=== PATIENT | male | born 1990 | race Caucasian/White ===

== ENCOUNTER 2020-03-01 19:30 | Emergency (ER) | payer OTHER, BC, SELFPAY ==
--- NOTE | ~2020-03-01 | XR_ITS ---
EXAMINATION: XR forearm LT 2V INDICATION: Left forearm pain TECHNIQUE: Two views of the left forearm are obtained. COMPARISON: None available FINDINGS: There is no fracture, dislocation, or subluxation. Soft tissue swelling is seen at the medi al aspect of the mid forearm. Alignment at the wrist and elbow is normal. IMPRESSION: 1. Soft tissue swelling without acute osseous abnormality. Reviewed, dictated and finalized at location A.
[2020-03-01 20:04] VITALS: BP 151/75; PULSE 104; RESP 18; TEMP 36.2; O2SAT 97
--- NOTE | 2020-03-01 20:29 | ED.GENADULT ---
HPI - General Adult General Chief complaint: Extremity Injury, Upper Stated complaint: L arm injury Time Seen by Provider: 03/01/20 20:29 Source: patient Mode of arrival: ambulatory Limitations: no limitations History of Present Illness HPI narrative: 29-year-old male patient presents to the [facility] with complaints left forearm and wrist pain. Patient states that he was at work and was working with a wrench and it flung back hitting him in the left wrist. Patient states it feels very tight and states he has a lot of pain to the left wrist and forearm area. Denies any pain to the elbow. Patient states he has limited movement to the fingers. Denies taking anything for pain and denies icing it yet at this time. Related Data Allergies Allergy/AdvReac Type Severity Reaction Status Date / Time No Known Allergies Allergy Verified 03/01/20 20:07 Review of Systems Review of Systems: Narrative: CONSTITUTIONAL: Denies fever, chills, or sweats. EYES: Denies visual changes, redness, or discharge. ENT: Denies rhinorrhea, congestion, sore throat, or otalgia. CARDIOVASCULAR: Denies chest pain, palpitations, or edema. RESPIRATORY: Denies cough or dyspnea. GASTROINTESTINAL: Denies abdominal pain, nausea, vomiting, or diarrhea. GENITOURINARY: Denies dysuria or hematuria. SKIN: Denies rash or itching. MUSCULOSKELETAL: Denies back pain, joint pain, or myalgia. Positive left wrist and forearm pain NEUROLOGIC: Denies headache, numbness, or weakness. PSYCHIATRIC: Denies anxiety or depression. PMFSH Social History Social History Gender identity (if verbalized by the patient): Male Comments At the time of my signature I agree with nursing past medical history, surgical, social, and family history. There is no relevant family history pertinent to the presenting complaint. Exam Narrative: Exam Narrative: GENERAL: Well-appearing, well-nourished, and in no acute distress. HEAD: Normocephalic, atraumatic. EYES: PERRLA and EOMI. ENT: Nares clear, no rhinorrhea or epistaxis. Mucous membranes moist. NECK: Supple. No lymphadenopathy CHEST: Clear to auscultation. No respiratory distress. HEART: Regular rate and rhythm. No murmur heard. Normal peripheral pulses. ABDOMEN: Soft, nontender, nondistended, normal active bowel sounds. EXTREMITIES: The L wrist is without obvious asymmetry or deformity when compared to the R wrist. No surface trauma, patient has a small 1 cm laceration/puncture wound to the plantar side of the left forearm no active bleeding to the area, or obvious deformity. Swelling noted to the left wrist and forearm area. Swelling noted to the left hand. No overlying erythema or warmth. No bony crepitus or focal area of TTP. No scaphoid fullness or tenderness to direct palpation or axial load. Decreased with active flex/extension and pain with passive flexion and extension of the left wrist, pain with ulnar/radial deviation. Motor/sensory function of ulnar, radial, median nerves intact. Ulnar and radial pulses intact. SKIN: Warm, dry, no rash. NEURO: No focal deficits. Alert and oriented x3. Course Reevaluation(s) Reevaluation #1: Spoke with patient after x-ray had resulted. Discussed with him that there is no fracture noted to the forearm or wrist. Discussed with him though I am concerned about that little puncture wound/laceration to the forearm because it was a thao wench. Discussed with patient that we will update his tetanus shot and discharge him home on antibiotics. Discussed with him we will give him his first dose of antibiotics before he leaves because the pharmacies are most likely closed. Discussed with patient that if he needs time off her restrictions he will see his primary doctor but I will get him home tomorrow off of work. Patient verbalized understanding of this. Discussed with patient can take Tylenol and ibuprofen very important to clean the area with soap and water
--- NOTE | 2020-03-01 20:59 | PC.NURSE ---
CT waiting on Pt for about 5min outside room, pt never showed. Its been about another 15 minutes and Pt still not back to room. Female friend in room waiting for Pt, states she will call him.
[2020-03-01] MEDS: KETOROLAC (*BKC) 60 MG/2 ML VIAL IM (21:34)
[2020-03-01] MEDS: TETANUS,DIPHTHERIA,AC PERTUSSIS ADULT (0.5 ML) BOOSTRIX IM (22:24)
[2020-03-01] MEDS: CEPHALEXIN 500 MG CAPSULE PO (22:24)
[2020-03-01 22:55] VITALS: BP 162/80; PULSE 100; RESP 20; O2SAT 100
== END 2020-03-01 22:34 | disposition home or self-care (01) ==
PROVIDERS: Emergency Provider Nurse Practitioner Family
DX: S63.502A Unspecified sprain of left wrist, initial encounter (principal); S51.812A Laceration without foreign body of left forearm, initial encounter; W27.0XXA Contact with workbench tool, initial encounter; Z23 Encounter for immunization
CPT/HCPCS: 73090; 90471; 90715; 96372; 99283; A4565; A9270; J1885

== ENCOUNTER 2021-11-28 16:28 | Emergency (ER) | payer OTHER, SELFPAY ==
--- NOTE | ~2021-11-28 | XR_ITS ---
EXAMINATION: XR ankle RT min 3V EXAM DATE: 11/28/2021 17:37 INDICATION: Pain @ lateral side of RT ankle after injury x 2 days ago. TECHNIQUE: Right ankle frontal, lateral and oblique projections obtained and reviewed. There is no p rior study for comparison. FINDINGS: The right ankle mortise appears intact. Ossification dorsal to the talonavicular joint a ppears well-corticated, chronic. There are no acute fractures or dislocations identified. There is n o subcutaneous gas. The soft tissue is unremarkable. There are no radiopaque foreign bodies. IMPRESSION: No acute osseous findings. Reviewed, dictated and finalized at location G. IMPRESSION: No acute osseous findings.
[2021-11-28 16:45] VITALS: BP 167/90; PULSE 93; RESP 18; TEMP 36.6; O2SAT 97
--- NOTE | 2021-11-28 16:55 | ED.LOWEXIN ---
HPI - Extremity Injury (Lower) General Chief Complaint: Extremity Injury, Lower Stated Complaint: RT ankle pain Time Seen by Provider: 11/28/21 16:55 Source: patient History of Present Illness HPI Narrative: 31-year-old male twisted his right ankle at work yesterday. He presents with -- pain over his lateral malleolus and in front of the ankle. Decreased range of motion MD complaint: ankle injury Injury: Right: ankle Type of Injury: inversion Place: work Severity: moderate Relieving factors: nothing Exacerbating factors: weight bearing Associated symptoms: able to partially bear weight Other symptoms: none Related Data Home Medications Medication Instructions Recorded Confirmed No Home Medications 11/28/21 11/28/21 Allergies Allergy/AdvReac Type Severity Reaction Status Date / Time No Known Allergies Allergy Verified 11/28/21 16:54 Review of Systems Review of Systems: All systems reviewed & are unremarkable except as noted in HPI and below Constitutional: Constitutional: Reports as per HPI and Reports no additional constitutional complaints Eyes: Eyes: Reports as per HPI and Reports no additional eye complaints ENT: Reports system reviewed and no additional complaints, except as documented and Reports as per HPI Cardiovascular: Cardiovascular: Reports as per HPI and Reports no additional cardiovascular complaints Respiratory: Respiratory: Reports as per HPI and Reports no additional respiratory complaints Gastrointestinal: Gastrointestinal: Reports as per HPI and Reports no additional gastrointestinal complaints Genitourinary: Genitourinary: Reports no additional male genitourinary complaints and Reports as per HPI Musculoskeletal: Comments: right ankle pain with decreased range motion partial weight-bearing right lower extremity Integumentary/Breasts: Skin/Breast: Reports system reviewed and no additional complaints, except as docu Neurologic: Reports system reviewed and no additional complaints, except as documented Psychiatric: Psychiatric: Reports no additional psychiatric complaints Endocrine: Endocrine: Reports no additional endocrine complaints Hematologic/Lymphatic: Hematologic/Lymphatic: Reports no additional hematologic/lymphatic complaints Allergic/Immunologic: Allergic/Immunologic: Reports no additional allergic/immunologic complaints [facility] Social History Social History Gender identity (if verbalized by the patient): Male Exam Const: General: no acute distress and alert Orientation/consciousness: patient oriented x3 HENMT: Head: normal to inspection Eyes: General: appearance normal, both eyes and all related structures Conjunctivae: conjunctivae normal Pupils: Equal, round and reactive pupils present Neck: Neck: normal visual inspection and no lymphadenopathy Chest: Chest palpation & inspection: normal inspection of the chest Resp: Effort & Inspection: normal respiratory effort Auscultation: clear to auscultation bilaterally Cardio: Rate: regular rate Rhythm: regular rhythm GI: GI Palp: Yes Soft to palpation : General: Yes no CVA tenderness Male General Exam: Yes normal external exam Testes: Testes normal Urinary Catheter: Urinary Catheter: patent and draining Back/Spine/Pelvis: Back: no CVA tenderness Skin: General skin exam: normal color Rashes: no rashes Neuro: General: patient oriented x3 and moves all extremities Extrem: Other: tenderness around the lateral malleolus. Tenderness over front of the ankle joint. Pain worsened by inversion of the ankle joint. Psych: Appearance: grossly normal Mental Status: mental status grossly normal Course Course Emergency Course: ankle sprain patient refused pain medication MDM - Extremity Injury (Lower) MDM Narrative Medical decision making narrative: right ankle sprain Differential Diagnosis Differential diagnosis: Likely ankle spr
[2021-11-28 17:58] VITALS: BP 140/70; PULSE 70; RESP 18; TEMP 37; O2SAT 96
== END 2021-11-28 18:00 | disposition home or self-care (01) ==
PROVIDERS: Emergency Provider Internal Medicine Critical Care Medicine; PCP Family Medicine
DX: S93.401A Sprain of unspecified ligament of right ankle, initial encounter (principal)
CPT/HCPCS: 73610; 99283

== ENCOUNTER 2022-03-07 10:19 | Outpatient (CLI) | payer BC, SELFPAY ==
--- NOTE | ~2022-03-07 | US_ITS ---
EXAMINATION: US scrotum doppler DATE: 03/07/2022 11:01 INDICATION: Painful scrotal mass. TECHNIQUE: Grayscale and Doppler ultrasound images of the testes were obtained. COMPARISON: None. FINDINGS: The right testis measures 5.4 x 2.2 x 3.1. The left testis measures 5.0 x 2.2 x 3.3. There is normal vascular flow to both testes. The left epididymis contains a 9 mm cyst, with normal epididy mal vascular flow. The right epididymis is normal with normal vascular flow. No hydrocele. Small righ t varicocele. Tubular subcutaneous structure along the posterior aspect of the scrotum, without evide nt compressibility or internal vascular flow. IMPRESSION: No testicular mass. 9 mm left epididymal head cyst. Small right varicocele. Possible small thrombosed subcutaneous vein along the posterior scrotum. Reviewed, dictated and finalized at location K. IMPRESSION: No testicular mass. 9 mm left epididymal head cyst. Small right varicocele. Pos sible small thrombosed subcutaneous vein along the posterior scrotum.
== END 2022-03-07 10:20 | disposition home or self-care (01) ==
LOC: CHSIMG 10:21
PROVIDERS: PCP Family Medicine; Visit Provider Family Medicine
DX: N50.89 Other specified disorders of the male genital organs (principal)
CPT/HCPCS: 76870; 93976

== ENCOUNTER 2025-02-18 07:06 | Outpatient (CLI) | payer OTHER, SELFPAY ==
--- NOTE | ~2025-02-18 | US_ITS ---
EXAMINATION: US renal BI, US retroperitoneal duplex ltd DATE: 02/18/2025 07:50 INDICATION: hypertension TECHNIQUE: 1. Multiple grayscale and color Doppler images of the kidneys were obtained. 2. Multiple grayscale and pulsed Doppler images of the aorta and renal arteries were obtained. COMPARISON: None. FINDINGS: Kidneys: The right kidney measures 11.0 x 5.0 x 6.4 cm. The left kidney measures 9.8 x 4.0 x 5.7 cm. The kidne ys demonstrate normal echogenicity. There is no hydronephrosis in either kidney. No stones identifie d. The bladder is normal. Renal arteries/vascular: The aorta peak systolic velocity is 67 cm/s. The right renal artery peak systolic velocity is 46 cm/s in the proximal segment, 36 cm/s in the mid segment, and 42 cm/s in the distal segment. The left anthony al artery peak systolic velocity is 16 cm/s in the distal segment. The proximal to mid left renal art olive are not visualized. Normal directional flow is seen in the bilateral renal veins. IMPRESSION: 1. Normal kidneys with no hydronephrosis. 2. No Doppler evidence of renal artery stenosis. Reviewed, dictated and finalized at location A. IMPRESSION: 1. Normal kidneys with no hydronephrosis. 2. No Doppler evidence of renal artery stenosis.
--- OUTSIDE RECORDS SUMMARY | 2025-02-18 07:11 | XMS_ITS | Patient Health Record ---
Author Organization [facility] Address [address] [place] [address] Care Team Providers Care Clerk Television Production Name Role Phone Domo Chamberlain Unavailable Unavailable Reason For Referral No Information Procedures Procedure Date Ordered Date Performed Result Body Sit e BTE 01/26/2025 N/A Hearing Screening 01/26/2025 N/A Vision Screening 01/26/2025 N/A Encounters Encounter Location Date Provider Diagnosis [facility] [address] [place] [address] 01/26/2025 Domo Chamberlain Pre-employment healt h screening examination Z02.1 Assessments Encounter Date Diagnosis (ICD Code) Assessment Notes Treatment Notes Treatment Clinical Notes Section Notes 01/26/2025 Pre-employment health screening examination (ICD-10 - Z02.1) Plan Of Treatment Pending Test Test Name Order Date Urinalysis, Routine 01/26/2025 Vision Screening 01/26/2025 Hearing Screening 01/26/2025 BTE 01/26/2025 Insurance Providers Payer Name Payer Address Payer Phone Subscriber Number Group Number Insured Name Patient Relationship to Insured Coverage Start Date Coverage End Date [facility] Jessica/Juve Joselo Harden Self - patient is the insured
--- OUTSIDE RECORDS SUMMARY | 2025-02-18 07:12 | XMS_ITS ---
Author Organization [facility] Address [address] [place] [address] Care Team Providers Care Chief Controller Center Name Role Phone Domo Chamberlain Unavailable Unavailable REASON FOR VISIT 12:30 p [employer]G [employer], * [place] Pre Emp NO DRUG SCREEN, * [place] Pre-Employment Procedures Procedure Date Ordered Date Performed Result Body Sit e Vision Screening 01/26/2025 N/A Hearing Screening 01/26/2025 N/A BTE 01/26/2025 N/A Encounters Encounter Location Date Provider Diagnosis [facility] [address] [place] [address] 01/26/2025 Domo Chamberlain Pre-employment healt h screening examination Z02.1 Assessments Encounter Date Diagnosis (ICD Code) Assessment Notes Treatment Notes Treatment Clinical Notes Section Notes 01/26/2025 Pre-employment health screening examination (ICD-10 - Z02.1) Plan Of Treatment Pending Test Test Name Order Date Urinalysis, Routine 01/26/2025 Vision Screening 01/26/2025 Hearing Screening 01/26/2025 BTE 01/26/2025 Progress Notes * Joselo HARDEN DDOB: [birth year] (34 yo M)Acc No.[id number]:01/26/2025 Patient: Eladio Joselo LONG Provider: Eladio Chamberlain PA-C :1990 A ge:34 Y S ex:Male Date:01/26/2025 Address:[address] [facility] Subjective: * Chief Complaints: * 1 . 12:30 p [employer] [place]. 2. * [place] Pre Emp NO DRUG SCREEN. 3. * [place] Pre-Employment. * HPI: A DDITIONAL COMPLAINTS: Patient presents for pre-employment physical evaluation. Medical history forms and any accompanying health records are reviewed with the patients. * Medical History: Objective: * Vitals: Assessment: * Assessment: 1. P re-employment health screening examination - Z02.1 Plan: * Treatment: * Labs: * L ab: Urinalysis, Routine * Procedure Orders: * P rocedure: Vision Screening P rocedure: Hearing Screening P rocedure: BTE * Procedure Codes: P HYSI Physical Exam, HEARS HEARING SCREEN, VISIS VISION SCREEN, 02182 URINALYSIS, AUTO, W/O SCOPE, Modifiers: QW * Billing Information: * Visit Code: * Procedure Codes: PHYSI Physical Exam. HEARS HEARING SCREEN. VISIS VISION SCREEN. 04097 URINALYSIS, AUTO, W/O SCOPE. Modifiers: QW * Electronic signature of HUE Land on 02/18/2025 at 07:11 AM CDT Sign off status: Pending * Provider: Eladio Chamberlain PA-C Date: 0 01/26/2025 Generated for Indu prieto/Maco/eTransmitting on: 0 02/18/2025 07:11 AM CDT History and Physical Notes * HPI (History of Present Illness) Category Sub-Category Detail Notes Category Not es ADDITIONAL COMPLAINTS Patien t presents for pre-employment physical evaluation. Medical history forms and any accompanying health records are reviewed with the patients.
== END 2025-02-18 07:07 | disposition home or self-care (01) ==
LOC: CHSIMG 07:09
PROVIDERS: PCP Family Medicine; Visit Provider Family Medicine
DX: N18.4 Chronic kidney disease, stage 4 (severe) (principal)
CPT/HCPCS: 76775; 93976